=== PATIENT | female | born 1985 | race Two or more races ===

== ENCOUNTER 2016-09-16 23:11 | Emergency (ER) | payer OTHER ==
[2016-09-16] MEDS ORDERED: IOPAMIDOL 370 (76%) 100 ML VIAL IV ONE (23:12)
[2016-09-16] MEDS ORDERED: SODIUM CHLORIDE 0.9% 1,000 ML ONE (23:53)
[2016-09-17 00:04] LABS: BASO % 0.2 % (0.2-1.0); EOS # 0.3 (0.0-0.5); EOS % 4.7 % (0.9-2.9); HEMATOCRIT 45.3 % (37.0-47.0); HEMOGLOBIN 14.6 gm/l (12.0-16.0); LYMPH # 2.3 (1.0-4.8); LYMPH % 36.2 % (15-45); MEAN CELL VOLUME 77.8 fl (81.0-99.0); MEAN CORPUSCULAR HEMOGLOBIN 25.1 pg (27.0-31.0); MEAN CORPUSCULAR HGB CONC 32.2 g/dl (33.0-37.0); MEAN PLATELET VOLUME 11.3 fl (7.4-10.4); MONO # 0.7 (0.0-0.8); MONO % 10.6 % (4-12); NEUT % 48.3 % (43-75); PLATELET COUNT 308 K/mm3 (130-400); RED CELL DISTRIBUTION WIDTH 13.6 % (11.5-14.5)
[2016-09-17] MEDS ORDERED: ONDANSETRON 4 MG/2ML 2 ML VIAL ONE (00:09)
[2016-09-17 00:15] LABS: ALB/GLOB RATIO 0.7 (>1.0); ALBUMIN 3.9 gm/dL (3.5-5.7); CALCIUM 8.8 mg/dL (8.6-10.3)
[2016-09-17] MEDS ORDERED: Potassium Chloride ORAL SOLN 20 MEQ/15 ML UDCUP ONE (00:59)
[2016-09-17 02:00] LABS: MAGNESIUM 1.9 mg/dL (1.9-2.7)
[2016-09-17] MEDS ORDERED: SODIUM CHLORIDE 0.9% 1,000 ML ONE (03:20)
--- NOTE | 2016-09-17 18:12 | CT ---
CTA CHEST FOR PE COMPARISON: None HISTORY: 1 hour ago with patient suffering syncopal episode lasting less than a minute. Technique: Intravenous injection 80 mL Isovue-370. Using a [employer] Aquilion [address] scanner, following a CT angiogram protocol, images obtained through the thorax. Under concurrent supervision and interpretation, requiring a separate 3-D workstation, the technologist created 3-D CT angiograms. An automated dose reduction technique was used to minimize patient radiation dose. Dose information: CTDIvol (mGy): 9.60, 39.50, 39.10 DLP(mGycm): 1416.90 FINDINGS: Pulmonary arteries and veins: Adequate contrast opacification. No pulmonary embolism. Aorta: Normal Heart and coronary arteries: Normal. Lungs: Normal. Trachea and bronchi: Normal. Mediastinum and herrera: Normal. Pleura and pericardium: Normal. Chest wall: Normal. Spine: No acute finding. T5-6 chronic calcified disc herniation. Upper abdomen: Calcified gallstone. 3-D CT angiogram: Normal. IMPRESSION: 1 CT pulmonary grams negative for pulmonary visible. There is some motion artifact. 2. Calcified gallstone. No evidence of acute cholecystitis. 3. Mild chronic calcified disc protrusion at T5-6. Preliminary report by [facility] radiologist Roger Baker M.D. 09/17/2016 at 04:51
== END 2016-09-17 05:36 | disposition home or self-care (01) ==
LOC: ED 23:11
DX: R55 Syncope and collapse (principal); R11.2 Nausea with vomiting, unspecified; R19.7 Diarrhea, unspecified; E87.1 Hypo-osmolality and hyponatremia; E87.6 Hypokalemia
CPT/HCPCS: 83690; 85379; 84703; 85025; 80053; 83735; 84484; 71275; 99284 ×2; 96374; 96361; 93005; J2405; J7030 ×2; Q9967; A9270